=== PATIENT | male | born 1970 | race Caucasian/White ===

== ENCOUNTER 2017-01-20 13:34 | Inpatient (IN) | payer MEDICAID, OTHER ==
[~2017-01-20] VITALS: Ht 165.1 cm; Wt 72.6 kg
[2017-01-20] MEDS ORDERED: INSU100C SQ (13:50)
[2017-01-20] MEDS ORDERED: GABA-534 PO (13:50)
--- NOTE | 2017-01-20 13:55 | NUR ---
CODE SEPSIS WAS CALLED BY DR BLACK. CODE SEPSIS PROTOCOL STARTED.
[2017-01-20] MEDS ORDERED: ONDANSETRON 4 MG/2 ML VIAL IV ONE (14:15)
[2017-01-20] MEDS ORDERED: LIDOCAINE HCL 2% 20 ML VIAL TP ONE (14:15)
[2017-01-20] MEDS ORDERED: MORPHINE SULFATE 2 MG/1 ML DISP.SYRIN IV ONE (14:15)
[2017-01-20] MEDS ORDERED: VANCOMYCIN IV 1,000 MG in IV DEXTROSE 5% 250 ML IV ONE (14:15)
[2017-01-20] MEDS ORDERED: IV NORMAL SALINE 1000 ML BAG IV ONE ×2 (14:15→15:15)
[2017-01-20] MEDS ORDERED: LET TOPICAL SOLUTION 8 ML UDC TOP ONE (14:15)
--- NOTE | 2017-01-20 14:20 | NUR ---
PT IS IN ROOM #1A. DR BLACK EVALUATED THE PT.
[2017-01-20 14:46] LABS: BASOPHILS # (AUTO) 0.1 K/uL (0.0-8.0); BASOPHILS % (AUTO) 0.7 % (0.0-2.0); EOSINOPHILS # (AUTO) 0.2 K/uL (0.0-0.7); EOSINOPHILS % (AUTO) 1.6 % (0.0-7.0); HEMATOCRIT 36.6 % (40-50); HEMOGLOBIN 12.2 G/DL (14.0-18.0); LYMPHOCYTES # (AUTO) 3.3 K/UL (0.8-4.8); MEAN CORPUSCULAR HEMOGLOBIN 29.4 UUG (27.0-31.0); MEAN CORPUSCULAR HGB CONC 33 g/dL (32.0-37.0); MEAN CORPUSCULAR VOLUME 88.2 FL (82.0-92.0); MONOCYTES # (AUTO) 0.8 K/UL (0.1-1.30); MONOCYTES % (AUTO) 6.2 % (0.0-11.0); NEUTROPHILS # (AUTO) 8.2 K/UL (1.8-8.9); NEUTROPHILS % (AUTO) 65.5 % (38.5-71.5); PLATELET COUNT (AUTO) 448 K/UL (150-450); RED BLOOD CELL COUNT(AUTO) 4.15 MIL/UL (4.7-6.1); WHITE BLOOD COUNT (AUTO) 12.6 K/UL (4.0-11.2)
[2017-01-20] MEDS ORDERED: ONDANSETRON 4 MG/2 ML VIAL ONE (14:47)
[2017-01-20] MEDS ORDERED: MORPHINE SULFATE 2 MG/1 ML DISP.SYRIN ONE (14:47)
[2017-01-20] MEDS ORDERED: LET TOPICAL SOLUTION 8 ML UDC ONE (14:48)
[2017-01-20] MEDS ORDERED: VANCOMYCIN IV 200 ML ONE (14:50)
[2017-01-20] MEDS: SODIUM BICARBONATE 4.2 % (NEUT) 5 ML VIAL TP ONE ×2 (14:50→15:39)
[2017-01-20 14:51] LABS: ALANINE AMINOTRANSFERASE 18 U/L (16-63); ALKALINE PHOSPHATASE 150 U/L (50-136); ASPARTATE AMINOTRANSFERASE 15 U/L (15-37); BILIRUBIN,DIRECT < 0.1 mg/dL (0.0-0.2); BILIRUBIN,TOTAL 0.1 mg/dL (0.2-1.0); CARBON DIOXIDE 32 mmol/L (21-32); CHLORIDE 96 mmol/L (98-107); CREATININE 1.3 mg/dL (0.6-1.3); POTASSIUM 3.6 mmol/L (3.5-5.1); TOTAL PROTEIN, SERUM 7.6 g/dL (6.4-8.2); UREA NITROGEN, BLOOD 16 mg/dL (7-18)
[2017-01-20 14:58] LABS: GLUCOSE 426 mg/dL (74-106)
[2017-01-20] MEDS ORDERED: INSULIN REGULAR, HUMAN 1,000 UNITS/10 ML VIAL IV ONE (15:45)
[2017-01-20] MEDS ORDERED: INSULIN REGULAR, HUMAN 300 UNIT/3 ML VIAL ONE (15:56)
[2017-01-20] MEDS ORDERED: MORPHINE SULFATE 4 MG/1 ML DISP.SYRIN IV ONE (17:30)
[2017-01-20] MEDS ORDERED: MORPHINE SULFATE 4 MG/1 ML DISP.SYRIN ONE (17:41)
[2017-01-20 17:51] LABS: *BILIRUBIN,URIN NEGATIVE (NEGATIVE); *BLOOD, URINE 3+ (NEGATIVE); *CLARITY,URINE CLEAR (CLEAR); *COLOR,URINE YELLOW (YELLOW); *KETONES,URINE NEGATIVE (NEGATIVE); *UROBILINOGEN,URINE 0.2 E.U./dl (NORMAL); LEUKOCYTE ESTERASE ,URINE NEGATIVE (NEGATIVE); NITRITE, URINE NEGATIVE (NEGATIVE)
[2017-01-20] MEDS ORDERED: LEVOFLOXACIN 750 MG/D5W 150 ML PIGGYBACK IV ONE (18:00)
[2017-01-20 18:20] LABS: *PROTEIN,URINE 3+ (NEGATIVE)
[2017-01-20 18:21] LABS: UGLUCOSE 2+ (NEGATIVE)
[2017-01-20 18:22] LABS: RBC,URINE 20-50 /HPF (0-3); WBC,URINE 0-3 /HPF (0-3)
[2017-01-20 18:23] LABS: MUCUS,URINE FEW /LPF (0-FEW)
[2017-01-20] MEDS ORDERED: LEVOFLOXACIN 750MG/D5W 150 ML IV ONE (18:28)
--- NOTE | 2017-01-20 19:19 | NUR ---
Received report from HAI Balderas. Assumed care of pt at this time. Admission pending.
[2017-01-20] MEDS ORDERED: HYDROMORPHONE 1 MG/1 ML DISP.SYRIN IV ONE (20:30)
[2017-01-20] MEDS ORDERED: HYDROMORPHONE 1 MG/1 ML DISP.SYRIN ONE (20:44)
--- NOTE | 2017-01-20 20:44 | NUR ---
Pt c/o increased pain, requested pain medication. MD notified and pt medicated, will monitor for effects of medications. Report called to HAI Parkinson. Preparing to transfer pt to the floor.
--- NOTE | 2017-01-20 21:20 | NUR ---
PT RECEIVED FROM ED VIA [place]. A/OX4. ABLE TO MAKE NEEDS KNOWN. ORIENTED TO ROOM. V/S STABLE. NO ACUTE DISTRESS NOTED. NO COMPLAINTS OF PAIN. 103 SINUS TACHY ON THE TELE MONITOR. SAFETY MEASURES IMPLEMENTED. CALL LIGHT WITHIN REACH.
[2017-01-20 21:36] VITALS: BP 128/88
[2017-01-20] MEDS ORDERED: ONDANSETRON 4 MG/2 ML VIAL IV PRN (23:15)
[2017-01-20] MEDS ORDERED: ZOLPIDEM 5 MG TABLET PO PRN (23:15)
[2017-01-20] MEDS ORDERED: ACETAMINOPHEN 325 MG TABLET PO PRN (23:15)
[2017-01-20] MEDS ORDERED: ENOXAPARIN SODIUM 40 MG/0.4 ML DISP.SYRIN SQ SCH (23:15)
[2017-01-20] MEDS ORDERED: MAGNESIUM HYDROXIDE 30 ML LIQUID UDC PO PRN (23:15)
[2017-01-20] MEDS ORDERED: INSULIN REGULAR, HUMAN 300 UNITS/3 ML VIAL SQ PRN (23:45)
[2017-01-20] MEDS ORDERED: INSULIN REGULAR, HUMAN 300 UNIT/3 ML VIAL SQ PRN (23:45)
[2017-01-20] MEDS ORDERED: DEXTROSE 50% 50 ML DISP.SYRIN IV PRN (23:45)
[2017-01-20] MEDS: BLOOD SUGAR DIAGNOSTIC 1 EACH STRIP VI SCH (23:53)
[2017-01-21] VITALS: BP 110/66
[2017-01-21 04:00] VITALS: BP 131/91
--- NOTE | 2017-01-21 05:35 | NUR ---
PT REFUSED AM LABS
[2017-01-21] MEDS ORDERED: CLINDAMYCIN PHOSPHATE 600 MG/4 ML VIAL ONE (06:26)
--- NOTE | 2017-01-21 07:00 | NUR ---
PT IS LAYING IN BED. PT IS IN PAIN, PAGED DR BEDOYA FOR ORDERS. NO S/S OF RESPIRATORY DISTRESS NOTED. IV INTACT/PATENT. ALL SAFETY NEEDS ARE MET. PER NOC NURSE "DRESSING - WOUND CARE WAS DONE AT MIDNIGHT, WILL CONTINUE MONITORING THE WOUND WILL CHANGE IF SOILED PER ORDER.
--- NOTE | 2017-01-21 07:04 | NUR ---
END OF SHIFT NOTES. PT SLEPT INTERMITTENTLY THROUGHOUT SHIFT. V/S STABLE. NO ACUTE DISTRESS NOTED. NO COMPLAINTS OF PAIN. REFUSED TO REAPPLY TELE, PT STATES' "LEAVE ME ALONE I WANT TO SLEEP" WILL ENDORSE TO DAYSHIFT. NEEDS ATTENDED. SAFETY MAINTAINED. CALL LIGHT WITHIN REACH
[2017-01-21] MEDS: BLOOD SUGAR DIAGNOSTIC 1 EACH STRIP VI SCH ×4 (07:54→20:24)
[2017-01-21] MEDS: CLINDAMYCIN PHOSPHATE IV 600 MG in IV DEXTROSE 5% 100 ML IV SCH ×3 (07:54→21:11)
[2017-01-21] MEDS: PANTOPRAZOLE SODIUM 40 MG TABLET.DR PO SCH (08:22)
[2017-01-21] MEDS: ENOXAPARIN SODIUM 40 MG/0.4 ML DISP.SYRIN SQ SCH (08:28)
[2017-01-21] MEDS: HYDROMORPHONE 1 MG/1 ML DISP.SYRIN IV PRN ×3 (08:57→20:08)
[2017-01-21] MEDS: VANCOMYCIN IV 1 G in PREMIXED 0 EACH IV SCH (09:51)
[2017-01-21 10:36] LABS: BASOPHILS # (AUTO) 0.1 K/uL (0.0-8.0); BASOPHILS % (AUTO) 0.4 % (0.0-2.0); EOSINOPHILS # (AUTO) 0.2 K/uL (0.0-0.7); EOSINOPHILS % (AUTO) 1.5 % (0.0-7.0); HEMATOCRIT 34.2 % (40-50); HEMOGLOBIN 11.5 G/DL (14.0-18.0); LYMPHOCYTES % (AUTO) 20.6 % (20.5-51.5); MEAN CORPUSCULAR HEMOGLOBIN 29.5 UUG (27.0-31.0); MEAN CORPUSCULAR HGB CONC 34 g/dL (32.0-37.0); MEAN CORPUSCULAR VOLUME 88.3 FL (82.0-92.0); MONOCYTES # (AUTO) 0.7 K/UL (0.1-1.30); MONOCYTES % (AUTO) 4.5 % (0.0-11.0); NEUTROPHILS # (AUTO) 10.5 K/UL (1.8-8.9); PLATELET COUNT (AUTO) 422 K/UL (150-450); RED BLOOD CELL COUNT(AUTO) 3.88 MIL/UL (4.7-6.1); WHITE BLOOD COUNT (AUTO) 14.5 K/UL (4.0-11.2)
[2017-01-21 10:47] LABS: BILIRUBIN,TOTAL 0.1 mg/dL (0.2-1.0); CREATININE 1.1 mg/dL (0.6-1.3); MAGNESIUM 1.7 mg/dL (1.8-2.4); PHOSPHOROUS 2.8 mg/dL (2.5-4.9); POTASSIUM 3.9 mmol/L (3.5-5.1); TOTAL PROTEIN, SERUM 6.3 g/dL (6.4-8.2)
[2017-01-21 10:56] LABS: THYROID STIMULATING HORMONE 2.796 mIU/mL (0.358-3.740)
--- NOTE | 2017-01-21 11:13 | NUR ---
ADVISED ABOUT CRITICAL LAB GLUCOSE 304. PER KEENAN BYNUM "CHANGE INSULIN FROM MODERATE TO AGGRESSIVE, CHECK HIS BG VIA ACCUCHECK AND IF THE BG IS HIGH GIVE HIM INSULIN PER AGGRESSIVE SCALE."
[2017-01-21 11:40] VITALS: BP 122/77
[2017-01-21] MEDS: INSULIN REGULAR, HUMAN 300 UNIT/3 ML VIAL SQ PRN ×2 (11:57→17:48)
[2017-01-21] MEDS ORDERED: MAGNESIUM SULFATE/D5W 100 ML IV SCH (12:15)
[2017-01-21] MEDS: IV NS 1000 ML 1,000 ML IV PRN (12:51)
[2017-01-21] MEDS: FERROUS SULFATE 325 MG TABEC PO SCH (12:51)
--- NOTE | 2017-01-21 14:59 | NUR ---
PT IS POSTIVE FOR DVT IN HIS EXTREMITY, KEENAN BYNUM IS AWARE. PT'S 02 SAT IS 85 ON SHARRI AIR, PT REFUSED TO HAVE SUPPLEMENTAL OXYGEN. PT SCREAMS "I SAID I DON'T WANT ANYTHING ON MY FACE!", PT IS ALERT AND ORIENTEDX3. ADVISED KEENAN BYNUM THAT PT'S O2 SAT IS 85% ON ROOM AIR AND PT REFUSING SUPPLEMETAL OXYGEN, PER KEENAN CASTRO "HE NEEDS IT". PT REFUSED AGAIN. PT GETS AGITATED. PT IS LAYING IN BED. NO PAIN REPORTED.
--- NOTE | 2017-01-21 15:14 | NUR ---
WOUND CARE DONE, DRESSING INTACT/DRY
[2017-01-21 15:31] VITALS: BP 149/96
--- NOTE | 2017-01-21 15:37 | NUR ---
PT REFUSING SUPPLEMENTAL OXYGEN MULTIPLE TIMES, REFUSED TO HAVE FAN IN HIS ROOM WELL. PT IS ALERT AND ORIENTED. PROVIDER IS AWARE THAT PT REFUSING HIS OXYGEN.
--- NOTE | 2017-01-21 15:46 | NUR ---
[facility] 13:46 [facility] about the patient being capitated to [facility]. She confirmed htransferring the patient
--- NOTE | 2017-01-21 15:46 | NUR ---
PT REFUSED WOUND CULTURE SWAB, WOUND CARE WAS DONE PRIOR THE WOUND CULTURE SWB. PT "WANTS TO SLEEP"
--- NOTE | 2017-01-21 15:48 | NUR ---
12:56 Spoke to Sunil from Admitting to find out where the patient is capitated to and he stated that it is [facility]. He provided the phone number - - for the CM. 13:10 Called - but there was no answer 13:19 Called [facility] and spoke to Jenny [phone]] about the patient being capitated to [facility]. She confirmed that he is. Asked for help in transferring the patient but she stated that it has to be initiated by the patient's IPA which is [facility] [ ] 13:26 DHS tray casting machine operator stated that we have to call the main number and ask for [facility] ER - ext. [phone] 13:30 [facility] ER stated they do not initiate transfer and was referred to the Guide Control [ ] 13:38 Called the Guide Control and transferred to [place] from [facility] [ ]. She stated that they can not assist at this point because [facility] has not received an initial request for admission. 13:46 Called [facility] [ ] and spoke to Jerry about the situation. She transferred me to which is the in-patient CM Support Line. Stan took the case and initiated the admission. She provided Tracking# [id number] and stated that the CM is Arelis Hernandes [phone]. 14:10 Left a message to CM, Arelis Hernandes Addendum: 01/21/17 at 1730 by MAMIE SCRUGGS [facility] Left a message for Erum Morales [CM from [employer]; ; ] and faxed her the patient's facesheet, H&P, labs and med list with Tracking# [id number]
--- NOTE | 2017-01-21 15:54 | NUR ---
CLINICAL PHARMACY NOTE: VANCOMYCIN PHARMACY TO DOSE Subjective: To start vancomycin in this 46 y/o male for cellulitis, possibly necrotizing, from knee amputation wound with purulent discharge (per ER note). Also currently on clindamycin, ID to follow Objective: height 177cm weight 72 kg BUN 16 Scr 1.3 wbc 12.6 temp 98.3 1gm vancomycin given at 8/3 @1447 in ER Assessment/Plan Will start vancomycin 1gm q14hrs for expected trough of 15.56. First dose today at 0900. Will order trough before 4th scheduled dose (not ordered yet). Will also monitor renal function and adjust if were to seem unstable. Will continue to follow.
--- NOTE | 2017-01-21 16:07 | NUR ---
PT WANTS TO GO OUTSIDE TO SMOKE, BUT REFUSED TO HAVE NICOTINE PATCH
--- NOTE | 2017-01-21 17:03 | NUR ---
pt still refusing supplemental oxygen, per priti Roman "order for oxygen". ADVISED NURSE MUSIC ADAPTER AND CHARGE NURSE THAT THE PT REFUSES O2. PT GETS AGITATED WHEN ASKED, SCREAMS "MY OXYGEN IS LOW BECAUSE OF THE DRY CHICKEN I ATE! IDON'T WANT ANYTHING ON MY FACE!". STILL REFUSING FAN. CALLED HAND POTTER TO ADVISE THE PT. Addendum: 01/21/17 at 1705 by LIZZ RUIZ RN EDUCATION WAS PROVIDED ON IMPORTANCE OF HAVING SUPPLEMENTAL OXYGEN.
--- NOTE | 2017-01-21 17:05 | NUR ---
PT IS ABLE TO TALK, BREATHING IS WNL. NO SOB REPORTED BY THE PT.
--- NOTE | 2017-01-21 17:27 | NUR ---
PT KEPT ON MOVING DURING BLOOD DRAW. PT REFUSED LABS, WHEN ASKED ABOUT ACCUCHECK. PT STATES "WAIT 5 MIN", WILL COME BACK TO ASK IF ACCUCHECK CAN BE PERFORMED. PT HAS NC ON ON 2L Addendum: 01/21/17 at 1729 by LIZZ RUIZ RN WILL CHECK 02 SAT IN 5 MIN
--- NOTE | 2017-01-21 18:05 | NUR ---
pt ripped his nc off his face, screams "i told you don't put it on!I don't want it!". Asked the pt if a fan will help the pt to breath "ok", brought in a fan to put on high flow facing the pt. Advice the pt that he NEEDS the oxygen and he will be able to breathe better. "I don't need it, I trust no one! You all are trying to kill me!". 02 sat is 80% on room air.
--- NOTE | 2017-01-21 18:11 | NUR ---
pt is moaning, asked the pt if he is in pain "I'm not in pain".
--- NOTE | 2017-01-21 18:24 | NUR ---
RT WAS CALLED TO ASSESS THE PT. 02 SAT IS AT 78%-80%. PT REFUSED TO KEEP THE OXYGEN ON WITH RT. PT SCREAMS "IM TOO COLD, TURN THAT D FAN OFF!". PT IS ALERT AND ORIENTED, OCCASIONAL COUGH IS NOTED, PT TAKES DEEP FREQUENT BREATHS. BP REFUSED, HR IS 130 Addendum: 01/21/17 at 1829 by LIZZ RUIZ RN RR IS 28 Addendum: 01/21/17 at 1830 by LIZZ RUIZ RN ASSESSMENT OF LUNG SOUNDS
[2017-01-21 19:00] VITALS: BP 160/106
--- NOTE | 2017-01-21 19:00 | NUR ---
PT REPORTS TO HAVE PAIN, BUT 02 SAT IS LOW. ADVISED THE PT THAT WE NEED TO GET 02 SAT HIGHER BEFORE PAIN MEDS. IV INTACT/PATENT. ALL SAFETY NEEDS ARE MET. PT STILL REFUSES NC.
--- NOTE | 2017-01-21 19:30 | NUR ---
RECEIVED PATIENT LAYING IN BED. NC OFF. PER AM NURSE LIZZ, PT REFUSED FAN, O2 NC, AND TR. UPSET. IN PAIN, ADVISED TO PUT ON O2 NC BEFORE PAIN MED ADMINISTRATION. IV ON THE RIGHT UPPER ARM PATENT AND INTACT. SAFETY INITIATED. CALL LIGHT WITHIN REACH. WILL CONTINUE TO MONITOR. TELE SINUS TACH.
--- NOTE | 2017-01-21 19:35 | NUR ---
DR. STEELE SEEING PATIENT AT BEDSIDE.
--- NOTE | 2017-01-21 19:45 | NUR ---
ALERT MD DR. STEELE ABOUT VS B/P 160/106 HR 132. NO SCHEDULED OR PRN B/P MEDS ON BOARD. DR. STEELE ORDERED METOPROLOL 50 MG. Q12HRS FIRST DOSE NOW.
[2017-01-21] MEDS: LACTOBACILLUS RHAMNOSUS GG 1 EACH CAPSULE PO SCH (20:08)
[2017-01-21] MEDS: ATORVASTATIN 10 MG TABLET PO SCH (20:08)
[2017-01-21] MEDS: MEROPENEM 1 G in IV NORMAL SALINE 100 ML IV SCH (20:23)
[2017-01-21] MEDS ORDERED: INSULIN DETEMIR 300 UNIT/3 ML CARTRIDGE SQ SCH (21:00)
[2017-01-21] MEDS ORDERED: INSULIN GLARGINE,HUM 300 UNITS/3 ML CARTRIDGE SQ SCH (21:00)
[2017-01-21] MEDS: INSULIN REGULAR, HUMAN 300 UNITS/3 ML VIAL SQ PRN (21:05)
[2017-01-21] MEDS: METOPROLOL TARTRATE 50 MG TABLET PO SCH (21:06)
[2017-01-22 00:07] VITALS: BP 150/95
--- NOTE | 2017-01-22 01:00 | NUR ---
PATIENT DEMAND THAT THE CADIAC LEADS TO BE REMOVED. HE DOES NOT WANT TO BE PUT ON A TELE MONITOR. "I DONT WANT TO BE ON THIS SINCE THIS MORNING". WILL ALERT THE MD.
[2017-01-22] MEDS: HYDROMORPHONE 1 MG/1 ML DISP.SYRIN IV PRN (01:20)
--- NOTE | 2017-01-22 01:50 | NUR ---
MD ALERTED ON PATIENT'S WISH TO CHANGE DILAUDID TO MORPHINE. ALSO ALERTED PATIENT DID NOT WANT TO BE ON TELE MONITOR.
[2017-01-22] MEDS: VANCOMYCIN IV 1 G in PREMIXED 0 EACH IV SCH ×2 (02:00→12:56)
[2017-01-22] MEDS: IV NS 1000 ML 1,000 ML IV PRN (02:04)
--- NOTE | 2017-01-22 02:40 | NUR ---
ORDERS RECEIVED TO D/C DILAUDID ORDERS RECEIVED TO START MORPHINE 1 MG IVP Q4H PRN VIN DENNIS N.P.
[2017-01-22] MEDS ORDERED: MORPHINE SULFATE 2 MG/1 ML DISP.SYRIN IV PRN (03:15)
[2017-01-22] MEDS: MEROPENEM 1 G in IV NORMAL SALINE 100 ML IV SCH ×3 (03:52→20:30)
[2017-01-22 04:00] VITALS: BP 127/77
--- NOTE | 2017-01-22 04:30 | NUR ---
PATIENT IV IN THE RIGHT UPPER ARM, DISLODGED. BECAUSE HE IS A HARD STICK AND A CURRENT DAY HEROIN USER, I CALLED ER, SPOKE TO WILL. WILL CAME UP. ACCORDING TO WILL, HE GOT A VEIN BUT PATIENT PULLED PULLED BACK, IV CAME OUT AND REFUSED IV RE-INSERTION. HE SAID "HE DOES NOT WANT IT ANYMORE".
[2017-01-22] MEDS: CLINDAMYCIN PHOSPHATE IV 600 MG in IV DEXTROSE 5% 100 ML IV SCH ×3 (06:00→21:36)
[2017-01-22] MEDS: PANTOPRAZOLE SODIUM 40 MG TABLET.DR PO SCH (06:10)
--- NOTE | 2017-01-22 06:30 | NUR ---
PATIENT SLEPT INTERMITTENTLY T/O SHIFT. COMPLAINED OF PAIN 10/10 IN THE BACK. MEDS GIVEN ORDERED. STATED RELIEF. PATIENT IV GOT DISLODGED AND REFUSED TO HAVE IT RE-INSERTED DESPITE DETAILED EXPLANATION OF THE IMPORTANCE OF HAVING AN IV SITE. PATIENT ALSO REFUSED TO HAVE 02 2L NC. HE STATES THAT "ITS CHOCKING ME, I DONT WANT IT". DRESSING CHANGED ON THE BACK AND RIGHT FOOT SOLE. CLEANED WITH NS, WRAPPED WITH 4X4 AND TAPED WITH PAPER TAPE. PATIENT REFUSED LINEN CHANGE, PER OYSTER PLANTER. AND TOOK OFF TELE MONITOR. VIN DENNIS MADE AWARE OF THIS. SAFETY AND COMFORT MAINTAINED T/O SHIFT, ALL NEEDS MET. CALL LIGHT WITHIN REACH. WILL CONTINUE TO MONITOR.
[2017-01-22] MEDS: BLOOD SUGAR DIAGNOSTIC 1 EACH STRIP VI SCH ×4 (06:57→20:40)
--- NOTE | 2017-01-22 08:00 | NUR ---
Received patient awake in bed, alert, verbally responsive, not in any form of acute distress. He denies any pain or discomfort at this time. Call light laced within reach. Attended to his needs.
[2017-01-22] MEDS: FERROUS SULFATE 325 MG TABEC PO SCH (09:44)
[2017-01-22] MEDS: LACTOBACILLUS RHAMNOSUS GG 1 EACH CAPSULE PO SCH ×2 (09:44→20:31)
[2017-01-22] MEDS: METOPROLOL TARTRATE 50 MG TABLET PO SCH ×2 (09:45→20:31)
[2017-01-22] MEDS: ENOXAPARIN SODIUM 40 MG/0.4 ML DISP.SYRIN SQ SCH (09:46)
[2017-01-22 10:29] LABS: BASOPHILS % (AUTO) 0.3 % (0.0-2.0); EOSINOPHILS # (AUTO) 0.1 K/uL (0.0-0.7); EOSINOPHILS % (AUTO) 0.7 % (0.0-7.0); HEMATOCRIT 33.9 % (40-50); HEMOGLOBIN 11.6 G/DL (14.0-18.0); LYMPHOCYTES # (AUTO) 2.5 K/UL (0.8-4.8); LYMPHOCYTES % (AUTO) 15.7 % (20.5-51.5); MEAN CORPUSCULAR HGB CONC 34 g/dL (32.0-37.0); MEAN CORPUSCULAR VOLUME 87.7 FL (82.0-92.0); MONOCYTES # (AUTO) 0.8 K/UL (0.1-1.30); MONOCYTES % (AUTO) 5.2 % (0.0-11.0); NEUTROPHILS # (AUTO) 12.6 K/UL (1.8-8.9); NEUTROPHILS % (AUTO) 78.1 % (38.5-71.5); PLATELET COUNT (AUTO) 447 K/UL (150-450); RED BLOOD CELL COUNT(AUTO) 3.86 MIL/UL (4.7-6.1); WHITE BLOOD COUNT (AUTO) 15.9 K/UL (4.0-11.2)
[2017-01-22 11:19] VITALS: BP 133/85
--- NOTE | 2017-01-22 11:20 | NUR ---
Case Management: Left second message for Erum Morales [CM from [employer]; ; ] and faxed her the patient's facesheet, H&P, labs and med list with Tracking# [id number]. Currently awaiting a call back to transfer patient to a contracted facility for higher level of care.
[2017-01-22] MEDS: MORPHINE SULFATE 4 MG/1 ML DISP.SYRIN IV PRN ×2 (11:25→18:15)
[2017-01-22 11:43] LABS: BILIRUBIN,TOTAL 0.3 mg/dL (0.2-1.0); CREATININE 1.2 mg/dL (0.6-1.3); MAGNESIUM 1.7 mg/dL (1.8-2.4); PHOSPHOROUS 2.6 mg/dL (2.5-4.9); POTASSIUM 3.6 mmol/L (3.5-5.1); TOTAL PROTEIN, SERUM 6.7 g/dL (6.4-8.2)
[2017-01-22] MEDS: INSULIN REGULAR, HUMAN 300 UNIT/3 ML VIAL SQ PRN ×2 (11:59→18:22)
[2017-01-22] MEDS ORDERED: MAGNESIUM SULFATE/D5W 100 ML IV SCH (12:45)
--- NOTE | 2017-01-22 13:06 | NUR ---
I was planing to perform CTA Chest on Tiago Augustin but he was eating lunch. I asked Juliana 'Charge Nurse' if it would be ok with ordering physician to wait few hours to perform the procedure (because status was Routine,and patient had lunch) she told me that would be no problem and it is a Routine not a Stat exam.
--- NOTE | 2017-01-22 13:30 | NUR ---
RFA peripheral line dislodged and patient refused IV insertion at this time. Explained risks and benefits but patient still refused.
--- NOTE | 2017-01-22 15:02 | NUR ---
CLINICAL PHARMACY NOTE: VANCOMYCIN PHARMACY TO DOSE Subjective: To continue vancomycin in this 46 y/o male for cellulitis, possibly necrotizing, from knee amputation wound with purulent discharge (per ER note). Also currently on clindamycin, ID to follow Objective: height 177cm weight 72 kg BUN 14 Scr 1.2 wbc 15.9 temp 98.2 Assessment/Plan Will continue vancomycin 1gm q14hrs for expected trough of 15.56. Second dose today at 0200. Will order trough before 4th scheduled dose (ordered tomorrow at 0230). Will also monitor renal function and adjust if were to seem unstable. Will continue to follow.
--- NOTE | 2017-01-22 15:33 | NUR ---
Midline inserted on PARRISH, patent.
[2017-01-22] MEDS ORDERED: NORMAL SALINE FLUSH 10 ML DISP.SYRIN ONE (16:29)
[2017-01-22] MEDS ORDERED: IV NORMAL SALINE 250 ML IV ONE (16:29)
[2017-01-22] MEDS ORDERED: IOHEXOL 350 100 ML INFUS..BTL ONE (16:29)
--- NOTE | 2017-01-22 16:40 | NUR ---
Patient picked up by pharmacy resource tech Edd for CTA chest.
[2017-01-22] MEDS ORDERED: FUROSEMIDE 20 MG/2 ML VIAL IV ONE (18:15)
[2017-01-22] MEDS: SILVER SULFADIAZINE 1% CREAM 50 GM TP SCH (18:16)
[2017-01-22 18:43] VITALS: BP 130/88
[2017-01-22 20:00] VITALS: BP_SYST 132; BP_SYST 137; BP_DIAS 91
[2017-01-22] MEDS: ATORVASTATIN 10 MG TABLET PO SCH (20:30)
[2017-01-22] MEDS: DOCUSATE SODIUM 100 MG CAPSULE PO SCH (20:31)
[2017-01-22] MEDS: ENOXAPARIN SODIUM 80 MG/0.8 ML DISP.SYRIN SQ SCH (20:33)
[2017-01-22] MEDS: INSULIN REGULAR, HUMAN 300 UNITS/3 ML VIAL SQ PRN (20:45)
[2017-01-22] MEDS: INSULIN DETEMIR 300 UNIT/3 ML CARTRIDGE SQ SCH (20:46)
[2017-01-23] MEDS: MEROPENEM 1 G in IV NORMAL SALINE 100 ML IV SCH ×3 (02:37→20:02)
[2017-01-23] MEDS: VANCOMYCIN IV 1 G in PREMIXED 0 EACH IV SCH ×2 (02:38→17:42)
[2017-01-23 06:00] VITALS: BP 122/87
[2017-01-23] MEDS: PANTOPRAZOLE SODIUM 40 MG TABLET.DR PO SCH (06:18)
[2017-01-23] MEDS: MORPHINE SULFATE 4 MG/1 ML DISP.SYRIN IV PRN ×3 (06:18→20:02)
[2017-01-23] MEDS: CLINDAMYCIN PHOSPHATE IV 600 MG in IV DEXTROSE 5% 100 ML IV SCH ×3 (06:18→23:10)
[2017-01-23 06:29] LABS: BASOPHILS # (AUTO) 0.2 K/uL (0.0-8.0); EOSINOPHILS # (AUTO) 0.1 K/uL (0.0-0.7); EOSINOPHILS % (AUTO) 0.5 % (0.0-7.0); HEMATOCRIT 32.8 % (40-50); HEMOGLOBIN 11.1 G/DL (14.0-18.0); LYMPHOCYTES # (AUTO) 4.3 K/UL (0.8-4.8); LYMPHOCYTES % (AUTO) 24.3 % (20.5-51.5); MEAN CORPUSCULAR HEMOGLOBIN 29.9 UUG (27.0-31.0); MEAN CORPUSCULAR HGB CONC 34 g/dL (32.0-37.0); MEAN CORPUSCULAR VOLUME 88.6 FL (82.0-92.0); MONOCYTES # (AUTO) 0.8 K/UL (0.1-1.30); MONOCYTES % (AUTO) 4.8 % (0.0-11.0); NEUTROPHILS # (AUTO) 12.3 K/UL (1.8-8.9); NEUTROPHILS % (AUTO) 69.4 % (38.5-71.5); PLATELET COUNT (AUTO) 451 K/UL (150-450); WHITE BLOOD COUNT (AUTO) 17.7 K/UL (4.0-11.2)
[2017-01-23 07:10] LABS: BILIRUBIN,TOTAL 0.2 mg/dL (0.2-1.0); CREATININE 1.3 mg/dL (0.6-1.3); TOTAL PROTEIN, SERUM 6.8 g/dL (6.4-8.2)
[2017-01-23] MEDS: BLOOD SUGAR DIAGNOSTIC 1 EACH STRIP VI SCH ×4 (07:30→20:26)
--- NOTE | 2017-01-23 07:30 | NUR ---
NURSE NOTE: ASSUMED CARE OF PT, VSS, NO C/O PAIN, AOx4, HEAD TO TOE DONE, FALL PRECAUTIONS IN PLACE. WILL CONTINUE TO MONITOR
[2017-01-23 08:00] VITALS: BP 124/76
[2017-01-23] MEDS: INSULIN REGULAR, HUMAN 300 UNIT/3 ML VIAL SQ PRN ×3 (08:40→17:43)
[2017-01-23] MEDS: FERROUS SULFATE 325 MG TABEC PO SCH (08:43)
[2017-01-23] MEDS: LACTOBACILLUS RHAMNOSUS GG 1 EACH CAPSULE PO SCH ×2 (08:43→20:26)
[2017-01-23] MEDS: METOPROLOL TARTRATE 50 MG TABLET PO SCH (08:47)
[2017-01-23] MEDS ORDERED: POTASSIUM CHLORIDE 20 MEQ TAB.PRT.SR PO ONE (10:00)
[2017-01-23] MEDS: ENOXAPARIN SODIUM 80 MG/0.8 ML DISP.SYRIN SQ SCH ×2 (10:07→21:00)
[2017-01-23] MEDS: SILVER SULFADIAZINE 1% CREAM 50 GM TP SCH ×2 (10:09→17:44)
[2017-01-23] MEDS: SODIUM HYPOCHLORITE 0.125% 473 ML BOTTLE TP SCH (10:09)
[2017-01-23 11:46] VITALS: BP 120/88
--- NOTE | 2017-01-23 14:36 | NUR ---
NURSE NOTE: WOUND CARE PERFORMED PER PROTOCOL, PT TOLERATED WELL. LEFT UPPER BACK: 95% WHITE/YELLOW/GREEN ESCAR TISSUE NOTED WITH MODERATE AMOUNT OF YELLOW DRAINAGE. AWAITING FOR SURGEON AND WOUND CARE NURSE EZEKIEL.
[2017-01-23 16:11] VITALS: BP 120/80
--- NOTE | 2017-01-23 16:50 | NUR ---
CLINICAL PHARMACY NOTE: VANCOMYCIN PHARMACY TO DOSE Subjective: To continue vancomycin in this 46 y/o male for cellulitis, possibly necrotizing, from knee amputation wound with purulent discharge (per ER note), R/O osteomyelitis per ID note. Also currently on clindamycin Objective: height 177cm weight 72 kg Objective BUN 18 Scr 1.3 wbc 17.7 temp 98 Vanco level: 45.5 mcg/ml but drawn at 0455 instead of 0230 as ordered. RN gave a dose at 0230. Vanco trough level: pending (ordered for 1630 today) Assessment/Plan On vancomycin 1gm IVPB q14hrs for now. Waiting for trough level result ordered for today at 1630. Pharmacy will review the level when available & adjust the dose if needed. Will also monitor renal function and adjust if were to seem unstable. Will continue to follow. Addendum: 01/23/17 at 1729 by BINDU VILLALTA ADM VANCO TROUGH LEVEL: 14.8 WILL CONTINUE SAME DOSE OF VANCO 1GM IVPB Q14HR FOR TODAY.
--- NOTE | 2017-01-23 18:22 | NUR ---
RN NOTE ASSISTED DR BURDICK WITH I&D AT THE BED SIDE. MORPHINE 4MG IV GIVEN PRIOR TO PROCEDURE. PT TOLERATED WELL. WOUND CULTURE DONE AND SENT TO THE LAB. WOUND BED PACKED WITH BETADINE GAUZE AND COVERED WITH STERILE 4X4. WILL CONTINUE TO REASSESS.
--- NOTE | 2017-01-23 19:27 | NUR ---
RN NOTES: REPORT GIVEN TO HAI CHIN. PT IS IN STABLE CONDITION
[2017-01-23 20:00] VITALS: BP 116/68
[2017-01-23] MEDS: ATORVASTATIN 10 MG TABLET PO SCH (20:26)
[2017-01-23] MEDS: DOCUSATE SODIUM 100 MG CAPSULE PO SCH (20:26)
--- NOTE | 2017-01-23 20:30 | NUR ---
PT RECEIVED AOX3. PT C/O OF CHEST PAIN AND OBSERVED WITH LABORED BREATHING RESPIRATIONS 28, VITAL SIGNS 116/68, O2 SAT 85% ON 3 LITERS, HEART RATE 104, TEMPT 98.7. PT HEAD OD BED WAS ELEVATED BUT PT UNCOOPERATIVE AND STATING "IT'S EASIER TO BREATHE LAYING FLAT". MD WAS NOTIFIED AND EKG WAS DONE. PT GIVEN MORPHINE ORDERED. WILL CONTINUE TO MONITOR FOR SAFETY.
[2017-01-23] MEDS: INSULIN DETEMIR 300 UNIT/3 ML CARTRIDGE SQ SCH (20:31)
[2017-01-23] MEDS: INSULIN REGULAR, HUMAN 300 UNITS/3 ML VIAL SQ PRN (20:34)
--- NOTE | 2017-01-23 21:00 | NUR ---
PT REPORTS CHEST ALLEVIATED WITH MORPHINE THAT WAS GIVEN. RESPIRATIONS 20 NO ACUTE DISTRESS NOTED. VITAL STABLE O2 SAT NOW AT 93%. WILL CONTINUE TO MONITOR FOR SAFETY.
--- NOTE | 2017-01-23 21:15 | NUR ---
PT REFUSED LOVENOX ORDERED STATING "I DON'T WANT IT, THAT'S WHAT MAKING ME FEELING LIKE THIS" DESPITE EDUCATION PROVIDED. WILL MAKE MD AWARE.
[2017-01-24 00:15] VITALS: BP 107/63
--- NOTE | 2017-01-24 02:25 | NUR ---
PT OBSERVED IN BED STATING "IT'S GETTING WORST [place] BREATHING" PT IS RUDE TOWARDS STAFF AND UNCOOPERATIVE, WOULD NOT ALLOW STAFF TO RAISE HEAD OF BED AND REMOVING NASAL CANULA DESPITE EDUCATION. PT STATING "JUST LEAVE ME ALONE, GET OUT OF HERE". WILL NOTIFY .
[2017-01-24] MEDS: MEROPENEM 1 G in IV NORMAL SALINE 100 ML IV SCH ×3 (03:20→18:56)
--- NOTE | 2017-01-24 04:30 | NUR ---
PT AWAKE AND TEARFUL REPORTS "BAD DREAM". PT IS ANXIOUS AND REQUESTED TO BE TRANSFERRED TO WHEELCHAIR. DRESSING TO BACK CHANGED WITH STERILE GAUZE ORDERED. PT REMAINS IRRITABLE AND UNCOOPERATIVE WITH CARE AT TIMES DESPITE EDUCATION. COMFORT MEASURES MAINTAINED.
[2017-01-24] MEDS: CLINDAMYCIN PHOSPHATE IV 600 MG in IV DEXTROSE 5% 100 ML IV SCH ×3 (05:12→22:48)
[2017-01-24 05:19] VITALS: BP 137/83
[2017-01-24] MEDS: VANCOMYCIN IV 1 G in PREMIXED 0 EACH IV SCH ×2 (06:23→20:43)
[2017-01-24] MEDS: MORPHINE SULFATE 4 MG/1 ML DISP.SYRIN IV PRN ×4 (06:24→21:53)
[2017-01-24] MEDS: PANTOPRAZOLE SODIUM 40 MG TABLET.DR PO SCH (06:26)
[2017-01-24] MEDS ORDERED: MORPHINE SULFATE 2 MG/1 ML DISP.SYRIN ONE (06:34)
[2017-01-24] MEDS: BLOOD SUGAR DIAGNOSTIC 1 EACH STRIP VI SCH ×4 (06:39→20:54)
[2017-01-24 06:41] LABS: BASOPHILS # (AUTO) 0.2 K/uL (0.0-8.0); EOSINOPHILS # (AUTO) 0.1 K/uL (0.0-0.7); EOSINOPHILS % (AUTO) 0.7 % (0.0-7.0); HEMATOCRIT 32.1 % (40-50); HEMOGLOBIN 10.6 G/DL (14.0-18.0); LYMPHOCYTES # (AUTO) 3.5 K/UL (0.8-4.8); LYMPHOCYTES % (AUTO) 21.4 % (20.5-51.5); MEAN CORPUSCULAR HEMOGLOBIN 29.1 UUG (27.0-31.0); MEAN CORPUSCULAR HGB CONC 33 g/dL (32.0-37.0); MEAN CORPUSCULAR VOLUME 88.3 FL (82.0-92.0); MONOCYTES # (AUTO) 0.8 K/UL (0.1-1.30); MONOCYTES % (AUTO) 5.1 % (0.0-11.0); NEUTROPHILS # (AUTO) 11.8 K/UL (1.8-8.9); NEUTROPHILS % (AUTO) 71.8 % (38.5-71.5); PLATELET COUNT (AUTO) 464 K/UL (150-450); RED BLOOD CELL COUNT(AUTO) 3.64 MIL/UL (4.7-6.1); WHITE BLOOD COUNT (AUTO) 16.4 K/UL (4.0-11.2)
[2017-01-24 06:53] LABS: BILIRUBIN,TOTAL 0.2 mg/dL (0.2-1.0); CREATININE 1.6 mg/dL (0.6-1.3); MAGNESIUM 1.9 mg/dL (1.8-2.4); PHOSPHOROUS 3.5 mg/dL (2.5-4.9); POTASSIUM 3.7 mmol/L (3.5-5.1); TOTAL PROTEIN, SERUM 6.6 g/dL (6.4-8.2)
--- NOTE | 2017-01-24 07:19 | NUR ---
BACKEND PYTHON DEVELOPER WOUND CARE CONSULT RECEIVED. WOUND CARE WILL DEFER TO GENERAL SURGEON, DPM AND ORTHO AT THIS TIME. TREATMENT ORDERS IN PLACE, AMRIK Higgins.
[2017-01-24] MEDS ORDERED: LISINOPRIL 5 MG TABLET PO SCH (09:00)
[2017-01-24 09:19] LABS: EOSINOPHILS % (MANUAL) 1 % (0-8); LYMPHOCYTES % (MANUAL) 28 % (20-40); MONOCYTES % (MANUAL) 3 % (2-10); NEUTROPHILS % (MANUAL) 68 % (42-75)
[2017-01-24] MEDS: LACTOBACILLUS RHAMNOSUS GG 1 EACH CAPSULE PO SCH ×2 (09:38→20:43)
[2017-01-24] MEDS: FERROUS SULFATE 325 MG TABEC PO SCH (09:39)
[2017-01-24] MEDS: ENOXAPARIN SODIUM 80 MG/0.8 ML DISP.SYRIN SQ SCH ×2 (09:40→20:52)
[2017-01-24] MEDS: INSULIN REGULAR, HUMAN 300 UNIT/3 ML VIAL SQ PRN ×3 (09:41→17:03)
[2017-01-24] MEDS: SODIUM HYPOCHLORITE 0.125% 473 ML BOTTLE TP SCH (09:43)
[2017-01-24] MEDS: SILVER SULFADIAZINE 1% CREAM 50 GM TP SCH ×2 (09:43→17:04)
[2017-01-24 11:57] VITALS: BP 158/108
[2017-01-24 15:17] VITALS: BP 134/86
--- NOTE | 2017-01-24 15:40 | NUR ---
CLINICAL PHARMACY NOTE: VANCOMYCIN PHARMACY TO DOSE Subjective: To continue vancomycin in this 46 y/o male for cellulitis, possibly necrotizing, from knee amputation wound with purulent discharge R/O osteomyelitis per ID note. Also currently on clindamycin Objective: height 177cm weight 72 kg Objective BUN 23 Scr 1.6 wbc 16.4 temp 98.7 Assessment/Plan Patient is on Vancomycin 1 gram IV every 14 hrs currently. Since renal function is unstable(1.6 vs 1.3) will draw another trough prior to next dose(ordered for [place] at 2030). Will inform nurse to hold dose if level is over 20. Will follow the level for further dosing. Will monitor daily.
--- NOTE | 2017-01-24 19:20 | NUR ---
RECEIVED PATIENT IN BED, ALERT ORIENTED, NO COMPLAIN OF PAIN AT THIS TIME. DRESSING INTACT ON R TOES, AND BACK, CONT TO MONITOR.
--- NOTE | 2017-01-24 20:30 | NUR ---
RADHA PALENCIA - WOUND , SEEN AND DRAINED PATIENT WOUND ON THE BACK, WITH MODERATE SEROSANGUINEOUS DRAINAGE NOTED, CHANGED DRESSING USING IODOFORM DRESSING SECURE WITH TAPE. TOLERATE WELL.
[2017-01-24 20:38] VITALS: BP 120/81
[2017-01-24] MEDS: ATORVASTATIN 10 MG TABLET PO SCH (20:43)
[2017-01-24] MEDS: DOCUSATE SODIUM 100 MG CAPSULE PO SCH (20:43)
[2017-01-24] MEDS: INSULIN DETEMIR 300 UNIT/3 ML CARTRIDGE SQ SCH (20:52)
[2017-01-25] MEDS: MEROPENEM 1 G in IV NORMAL SALINE 100 ML IV SCH ×2 (03:32→10:55)
[2017-01-25 04:00] VITALS: BP 162/104
[2017-01-25] MEDS: CLINDAMYCIN PHOSPHATE IV 600 MG in IV DEXTROSE 5% 100 ML IV SCH (05:06)
[2017-01-25] MEDS: hydrALAZINE HCL 25 MG TABLET PO PRN (05:17)
[2017-01-25] MEDS: PANTOPRAZOLE SODIUM 40 MG TABLET.DR PO SCH (06:11)
[2017-01-25] MEDS: BLOOD SUGAR DIAGNOSTIC 1 EACH STRIP VI SCH ×4 (06:32→23:23)
--- NOTE | 2017-01-25 07:01 | NUR ---
PATIENT SLEPT ON AND OFF, CONT ON PAIN MANAGEMENT, NO SOB NO CHEST PAIN, CONT ABX FOR WOUND INFECTION, CONT TO MONITOR.
[2017-01-25 07:12] LABS: BASOPHILS # (AUTO) 0.4 K/uL (0.0-8.0); BASOPHILS % (AUTO) 2.9 % (0.0-2.0); EOSINOPHILS # (AUTO) 0.2 K/uL (0.0-0.7); EOSINOPHILS % (AUTO) 1.2 % (0.0-7.0); HEMATOCRIT 30.9 % (40-50); HEMOGLOBIN 10.3 G/DL (14.0-18.0); LYMPHOCYTES # (AUTO) 2.3 K/UL (0.8-4.8); LYMPHOCYTES % (AUTO) 16.2 % (20.5-51.5); MEAN CORPUSCULAR HEMOGLOBIN 29.5 UUG (27.0-31.0); MEAN CORPUSCULAR HGB CONC 33 g/dL (32.0-37.0); MEAN CORPUSCULAR VOLUME 88.7 FL (82.0-92.0); MONOCYTES # (AUTO) 0.6 K/UL (0.1-1.30); MONOCYTES % (AUTO) 4.2 % (0.0-11.0); NEUTROPHILS # (AUTO) 10.5 K/UL (1.8-8.9); NEUTROPHILS % (AUTO) 75.5 % (38.5-71.5); PLATELET COUNT (AUTO) 365 K/UL (150-450); RED BLOOD CELL COUNT(AUTO) 3.48 MIL/UL (4.7-6.1)
[2017-01-25 07:45] VITALS: BP 150/68
[2017-01-25 07:57] LABS: BILIRUBIN,TOTAL 0.2 mg/dL (0.2-1.0); CREATININE 1.2 mg/dL (0.6-1.3); MAGNESIUM 1.7 mg/dL (1.8-2.4); PHOSPHOROUS 3.6 mg/dL (2.5-4.9); POTASSIUM 3.7 mmol/L (3.5-5.1); TOTAL PROTEIN, SERUM 6.4 g/dL (6.4-8.2)
[2017-01-25] MEDS: LACTOBACILLUS RHAMNOSUS GG 1 EACH CAPSULE PO SCH ×2 (08:05→20:51)
[2017-01-25] MEDS: SILVER SULFADIAZINE 1% CREAM 50 GM TP SCH ×2 (08:05→16:59)
[2017-01-25] MEDS: SODIUM HYPOCHLORITE 0.125% 473 ML BOTTLE TP SCH (08:05)
[2017-01-25] MEDS: FERROUS SULFATE 325 MG TABEC PO SCH (08:05)
[2017-01-25] MEDS: MORPHINE SULFATE 4 MG/1 ML DISP.SYRIN IV PRN ×3 (08:07→23:32)
[2017-01-25] MEDS: ENOXAPARIN SODIUM 80 MG/0.8 ML DISP.SYRIN SQ SCH ×2 (08:09→20:55)
[2017-01-25] MEDS: INSULIN REGULAR, HUMAN 300 UNIT/3 ML VIAL SQ PRN ×3 (08:09→17:00)
--- NOTE | 2017-01-25 08:15 | NUR ---
LAB RESULT OF ALBUMIN REPORT TO DR JAVED NO NEW ORDER
--- NOTE | 2017-01-25 08:30 | NUR ---
AWAKE ALERT COOPERATE WELL NO SOB RESTING WITH CALL MALDONADO IN REACH NO PAIN
[2017-01-25 10:19] LABS: BAND % (MANUAL) 5 % (0-10); LYMPHOCYTES % (MANUAL) 20 % (20-40); MONOCYTES % (MANUAL) 3 % (2-10); NEUTROPHILS % (MANUAL) 72 % (42-75)
[2017-01-25] MEDS ORDERED: MAGNESIUM OXIDE 400 MG TABLET PO ONE (10:45)
[2017-01-25] MEDS: VANCOMYCIN IV 1 G in PREMIXED 0 EACH IV SCH ×2 (11:33→23:16)
--- NOTE | 2017-01-25 12:00 | NUR ---
DR TEGAN ECHAVARRIA SEE PATIENT AND NEW ORDER IN CHART
[2017-01-25 12:07] VITALS: BP 129/87
[2017-01-25] MEDS ORDERED: CEFAZOLIN 2 G in IV DEXTROSE 5% 100 ML IV SCH (14:00)
--- NOTE | 2017-01-25 14:00 | NUR ---
WOUND CARE DSG CHANGE DONE ORDER SATE PAIN MED HELP TO RELIEF PAIN WELL
--- NOTE | 2017-01-25 14:56 | NUR ---
Case Management: Called Erum Morales [CM from [facility]; [phone]; ] and per voicemail she will be out of the office until 01/31/17. PANCHITO's voicemail instructed to contact Sofia [phone] who will be covering until then. TERRANCE spoke with Sofia who stated that actually the Metal Fabricating Supervisor is Yuliana and reported she is the [facility] RN. Per Sofia, the PANCHITO Bridges will return call regarding authorization to transfer to a higher level of care facility. Tracking# [id number].
[2017-01-25 15:25] VITALS: BP 145/89
--- NOTE | 2017-01-25 15:53 | NUR ---
CLINICAL PHARMACY NOTE: VANCOMYCIN PHARMACY TO DOSE Subjective: To continue vancomycin in this 46 y/o male for (per ID note): -Severe sepsis with lactic acidosis due to infected back wound and R foot infection - Infected back wound/abscess s/p failed I&D in ED; s/p bedside I&D 01/23/2017; superficial wound Cx grew GBS - R foot ulcer; X-ray shows erosive changes at the second metatarsophalangeal joint concerning for septic joint vs OM; superficial wound cx grew MSSA; s/p bedside I&D 01/24/2017 and wound cx grew GBS Objective: height 177cm weight 72 kg Objective BUN 20 Scr 1.2 wbc 14 temp 98.1 Vanco trough level: 13.1 Assessment/Plan Since vanco trough level is below 15 mcg/ml, will change Vancomycin dose from 1 gram IV every 14 hrs to vanco 1gm IVPB q13h for predicted vanco trough level of 15 mcg/ml at steady state. Second dose is due at midnight. Plan to draw another trough prior to 4th dose of current regimen (not yet ordered). Will monitor for renal function. Will monitor daily.
--- NOTE | 2017-01-25 17:00 | NUR ---
CONDITION STABLE PAIN UNDER CONTROL NO RESPIRATORY DISTRESS CONTINUE WOUND CARE ORDER ON FALL PRECAUTION BED ALARM ON AND CALL MALDONADO IN REACH
--- NOTE | 2017-01-25 19:10 | NUR ---
Bedside reporting with HAI Goodwin. Sleeping during initial rounds. Not in distress. LBKA noted. Right foot with dressing, dry and intact. Safety measures and fall precaution maintained. Continue care as planned.
[2017-01-25] MEDS: DOCUSATE SODIUM 100 MG CAPSULE PO SCH (20:51)
[2017-01-25] MEDS: ATORVASTATIN 10 MG TABLET PO SCH (20:51)
--- NOTE | 2017-01-25 21:00 | NUR ---
Accu check was not done at this time as scheduled. Pt refused to be touch. No insulin was given as well. Will try again later.
[2017-01-25 21:13] VITALS: BP 138/85
[2017-01-25] MEDS: INSULIN DETEMIR 300 UNIT/3 ML CARTRIDGE SQ SCH (23:25)
[2017-01-25] MEDS: INSULIN REGULAR, HUMAN 300 UNITS/3 ML VIAL SQ PRN (23:27)
[2017-01-26] MEDS ORDERED: VANCOMYCIN IV 1 G in PREMIXED 0 EACH IV SCH ×2
[2017-01-26 04:00] VITALS: BP 148/96
--- NOTE | 2017-01-26 05:48 | NUR ---
Patient very uncooperative with his care. He tends to screamed/yelled at the staff. Refused to be bothered/awakened for care. Refused wound pictures to be done, lab draws, accu check and medication dues. Charge nurse aware. Will endorse to oncoming shift.
--- NOTE | 2017-01-26 07:07 | NUR ---
Bedside reporting with HAI Goodwin
--- NOTE | 2017-01-26 08:00 | NUR ---
RESTING WELL NO SOB STATE PAIN UNDER CONTROL ON FALL PRECAUTION CALL MALDONADO IN REACH AND BED ALARM ON
[2017-01-26] MEDS: MORPHINE SULFATE 4 MG/1 ML DISP.SYRIN IV PRN (08:47)
[2017-01-26] MEDS: PANTOPRAZOLE SODIUM 40 MG TABLET.DR PO SCH (08:50)
[2017-01-26] MEDS: LACTOBACILLUS RHAMNOSUS GG 1 EACH CAPSULE PO SCH ×2 (08:50→20:29)
[2017-01-26] MEDS: FERROUS SULFATE 325 MG TABEC PO SCH (08:50)
[2017-01-26] MEDS: BLOOD SUGAR DIAGNOSTIC 1 EACH STRIP VI SCH ×4 (08:50→20:32)
[2017-01-26] MEDS: INSULIN REGULAR, HUMAN 300 UNIT/3 ML VIAL SQ PRN ×3 (08:52→17:17)
[2017-01-26] MEDS: ENOXAPARIN SODIUM 80 MG/0.8 ML DISP.SYRIN SQ SCH ×2 (08:54→20:34)
[2017-01-26] MEDS: SILVER SULFADIAZINE 1% CREAM 50 GM TP SCH ×2 (08:57→17:19)
[2017-01-26] MEDS: SODIUM HYPOCHLORITE 0.125% 473 ML BOTTLE TP SCH (08:57)
[2017-01-26 09:00] LABS: MAGNESIUM 1.7 mg/dL (1.8-2.4); POTASSIUM 3.5 mmol/L (3.5-5.1)
[2017-01-26 09:15] LABS: BASOPHILS # (AUTO) 0.1 K/uL (0.0-8.0); BASOPHILS % (AUTO) 0.7 % (0.0-2.0); EOSINOPHILS # (AUTO) 0.2 K/uL (0.0-0.7); HEMATOCRIT 34.8 % (40-50); HEMOGLOBIN 11.8 G/DL (14.0-18.0); LYMPHOCYTES # (AUTO) 2.7 K/UL (0.8-4.8); LYMPHOCYTES % (AUTO) 16.9 % (20.5-51.5); MEAN CORPUSCULAR HEMOGLOBIN 29.7 UUG (27.0-31.0); MEAN CORPUSCULAR HGB CONC 34 g/dL (32.0-37.0); MEAN CORPUSCULAR VOLUME 87.8 FL (82.0-92.0); MONOCYTES # (AUTO) 0.7 K/UL (0.1-1.30); MONOCYTES % (AUTO) 4.2 % (0.0-11.0); NEUTROPHILS # (AUTO) 12.4 K/UL (1.8-8.9); NEUTROPHILS % (AUTO) 77.2 % (38.5-71.5); RED BLOOD CELL COUNT(AUTO) 3.97 MIL/UL (4.7-6.1); WHITE BLOOD COUNT (AUTO) 16.1 K/UL (4.0-11.2)
[2017-01-26 09:34] LABS: PLATELET COUNT (AUTO) 562 K/UL (150-450)
[2017-01-26 11:40] VITALS: BP 118/73
[2017-01-26 11:43] LABS: BAND % (MANUAL) 2 % (0-10); EOSINOPHILS % (MANUAL) 1 % (0-8); LYMPHOCYTES % (MANUAL) 25 % (20-40); MONOCYTES % (MANUAL) 2 % (2-10); NEUTROPHILS % (MANUAL) 70 % (42-75)
[2017-01-26] MEDS: VANCOMYCIN IV 1 G in PREMIXED 0 EACH IV SCH (13:22)
--- NOTE | 2017-01-26 13:30 | NUR ---
WOUND CARE DSG CHANGE AND PICTURE TAKEN TODAY STATE PAIN MED HELP TO RELIEF PAIN NO SOB RA O2 SAT WAS 94%
--- NOTE | 2017-01-26 15:07 | NUR ---
CLINICAL PHARMACY NOTE: VANCOMYCIN PHARMACY TO DOSE Subjective: To continue vancomycin in this 46 y/o male for (per ID note): -Severe sepsis with lactic acidosis due to infected back wound and R foot infection - Infected back wound/abscess s/p failed I&D in ED; s/p bedside I&D 01/23/2017; superficial wound Cx grew GBS - R foot ulcer; X-ray shows erosive changes at the second metatarsophalangeal joint concerning for septic joint vs OM; superficial wound cx grew MSSA; s/p bedside I&D 01/24/2017 and wound cx grew GBS Objective: height 177cm weight 72 kg Objective BUN 15 Scr 1.2 wbc 14 temp 98.3 Assessment/Plan Will continue vanco 1gm IVPB q13h for predicted vanco trough level of 15 mcg/ml at steady state. third dose due today at 1300. Plan to draw another trough prior to 4th dose of current regimen (due for tomorrow early am at 0130). RN endorsed to hold if trough >20. Will check level in am and readjust as needed. Will monitor daily.
[2017-01-26] MEDS: hydrALAZINE HCL 25 MG TABLET PO PRN (15:11)
[2017-01-26 15:45] VITALS: BP 163/90
[2017-01-26 16:30] VITALS: BP 141/95
--- NOTE | 2017-01-26 17:30 | NUR ---
RESTING WELL PAIN UNDER CONTROL SAFETY MEASURE PROVIDED CALL LIGHT WITHIN REACH
--- NOTE | 2017-01-26 19:10 | NUR ---
Bedside reporting with HAI Goodwin. Awake, requesting snack at this time. Denies pain/discomfort at this time. Cooperative and pleasant. Continue care as planned.
[2017-01-26 20:08] VITALS: BP 132/87
[2017-01-26] MEDS: ATORVASTATIN 10 MG TABLET PO SCH (20:29)
[2017-01-26] MEDS: DOCUSATE SODIUM 100 MG CAPSULE PO SCH (20:30)
[2017-01-26] MEDS: INSULIN DETEMIR 300 UNIT/3 ML CARTRIDGE SQ SCH (20:33)
[2017-01-26] MEDS: INSULIN REGULAR, HUMAN 300 UNITS/3 ML VIAL SQ PRN (20:35)
--- NOTE | 2017-01-26 21:45 | NUR ---
Patient upset thinking that I spilled his urinal on his bedside table after emptying it to the bathroom. MARTIN Rodas and myself trying to explain but he started screaming at the top of his voice and saying "I will discharge you both as my nurse , you get out of my room"
[2017-01-27] MEDS: VANCOMYCIN IV 1 G in PREMIXED 0 EACH IV SCH ×2 (02:15→13:53)
[2017-01-27 05:00] VITALS: BP 128/80
--- NOTE | 2017-01-27 05:08 | NUR ---
Medicated once for pain after giving the insulin and lovenox SQ. Uncooperative with his care. Non compliant to treatment. Very irrational, rude, unreasonable, irritable, needy, and duarte. All needs attended. Continue on ATB IVPB as ordered without s/s of adverse reaction noted. No significant event reported all night.Continue care as planned.
--- NOTE | 2017-01-27 06:56 | NUR ---
Bedside reporting with HAI Thompson
--- NOTE | 2017-01-27 07:10 | NUR ---
Received report from mini shifter nurse. Patient in wheelchair returning from having a cigarette. transferred to bed on own.
[2017-01-27] MEDS: BLOOD SUGAR DIAGNOSTIC 1 EACH STRIP VI SCH ×4 (07:31→20:13)
[2017-01-27] MEDS: PANTOPRAZOLE SODIUM 40 MG TABLET.DR PO SCH (07:40)
[2017-01-27] MEDS: INSULIN REGULAR, HUMAN 300 UNIT/3 ML VIAL SQ PRN ×3 (07:41→16:52)
[2017-01-27] MEDS: MORPHINE SULFATE 4 MG/1 ML DISP.SYRIN IV PRN ×3 (07:43→20:07)
[2017-01-27] MEDS: FERROUS SULFATE 325 MG TABEC PO SCH (08:10)
[2017-01-27] MEDS: LACTOBACILLUS RHAMNOSUS GG 1 EACH CAPSULE PO SCH ×2 (08:10→20:13)
[2017-01-27] MEDS: SILVER SULFADIAZINE 1% CREAM 50 GM TP SCH ×2 (08:12→16:43)
[2017-01-27] MEDS: ENOXAPARIN SODIUM 80 MG/0.8 ML DISP.SYRIN SQ SCH ×2 (08:12→20:18)
[2017-01-27] MEDS: SODIUM HYPOCHLORITE 0.125% 473 ML BOTTLE TP SCH (08:12)
[2017-01-27 08:26] LABS: BASOPHILS # (AUTO) 0.1 K/uL (0.0-8.0); BASOPHILS % (AUTO) 0.7 % (0.0-2.0); EOSINOPHILS # (AUTO) 0.2 K/uL (0.0-0.7); EOSINOPHILS % (AUTO) 1.7 % (0.0-7.0); HEMOGLOBIN 11.5 G/DL (14.0-18.0); LYMPHOCYTES # (AUTO) 2.6 K/UL (0.8-4.8); LYMPHOCYTES % (AUTO) 20.2 % (20.5-51.5); MEAN CORPUSCULAR HEMOGLOBIN 29.1 UUG (27.0-31.0); MEAN CORPUSCULAR HGB CONC 33 g/dL (32.0-37.0); MEAN CORPUSCULAR VOLUME 88.2 FL (82.0-92.0); MONOCYTES # (AUTO) 0.5 K/UL (0.1-1.30); MONOCYTES % (AUTO) 3.7 % (0.0-11.0); NEUTROPHILS # (AUTO) 9.5 K/UL (1.8-8.9); NEUTROPHILS % (AUTO) 73.7 % (38.5-71.5); PLATELET COUNT (AUTO) 611 K/UL (150-450); RED BLOOD CELL COUNT(AUTO) 3.96 MIL/UL (4.7-6.1); WHITE BLOOD COUNT (AUTO) 12.9 K/UL (4.0-11.2)
[2017-01-27 08:39] LABS: POTASSIUM 3.8 mmol/L (3.5-5.1)
[2017-01-27 09:14] LABS: BAND % (MANUAL) 2 % (0-10); EOSINOPHILS % (MANUAL) 2 % (0-8); LYMPHOCYTES % (MANUAL) 25 % (20-40); MONOCYTES % (MANUAL) 3 % (2-10); NEUTROPHILS % (MANUAL) 68 % (42-75)
[2017-01-27 11:19] VITALS: BP 138/92
--- NOTE | 2017-01-27 12:00 | NUR ---
Wound care performed as ordered on back and foot, patient tolerated well.
--- NOTE | 2017-01-27 15:06 | NUR ---
CLINICAL PHARMACY NOTE: VANCOMYCIN PHARMACY TO DOSE Subjective: To continue vancomycin in this 46 y/o male for (per ID note): -Severe sepsis with lactic acidosis due to infected back wound and R foot infection - Infected back wound/abscess s/p failed I&D in ED; s/p bedside I&D 01/23/2017; superficial wound Cx grew GBS - R foot ulcer; X-ray shows erosive changes at the second metatarsophalangeal joint concerning for septic joint vs OM; superficial wound cx grew MSSA; s/p bedside I&D 01/24/2017 and wound cx grew GBS Objective: height 177cm weight 72 kg Objective BUN 18 Scr 1.0 wbc 14 temp 98 Vancomycin trough 14.5 today at 0150 Assessment/Plan Since Vancomycin trough is under therapeutic range(extrapolated level is 14.9) and scr is improving, will increase dose to 1 gram IV every 12hrs(2nd dose today at 1400) and draw trough by 4th dose(not ordered yet) for expected trough around 16.8. Will monitor daily.
--- NOTE | 2017-01-27 15:12 | NUR ---
PATIENT LEFT THE BUILDING WITHOUT NOTIFYING ME, AND TOOK HIMSELF BY WHEELCHAIR TO [facility] REPORTED BY PATIENT. VIDEO SURVEILANCE MONITORED, AND DURING MONITORING, PATIENT RETURNED AT 1630.
[2017-01-27 17:00] VITALS: BP 132/85
--- NOTE | 2017-01-27 18:10 | NUR ---
PATIENT IS IN BED, NO EVIDENCE OF DISTRESS NOTED. SIDE RAILS UP X2, BED IN LOW POSITION. NO SOB, NO PAIN REPORTED, DRESSINGS INTACT.
[2017-01-27 20:00] VITALS: BP 122/71
[2017-01-27] MEDS: DOCUSATE SODIUM 100 MG CAPSULE PO SCH (20:13)
[2017-01-27] MEDS: ATORVASTATIN 10 MG TABLET PO SCH (20:13)
[2017-01-27] MEDS: INSULIN DETEMIR 300 UNIT/3 ML CARTRIDGE SQ SCH (20:19)
[2017-01-27] MEDS: INSULIN REGULAR, HUMAN 300 UNITS/3 ML VIAL SQ PRN (20:20)
[2017-01-28] MEDS: VANCOMYCIN IV 1 G in PREMIXED 0 EACH IV SCH (01:28)
[2017-01-28] MEDS: PANTOPRAZOLE SODIUM 40 MG TABLET.DR PO SCH (06:12)
[2017-01-28] MEDS: BLOOD SUGAR DIAGNOSTIC 1 EACH STRIP VI SCH ×2 (06:39→12:14)
--- NOTE | 2017-01-28 06:46 | NUR ---
PATIENT SLEPT WELL, IN NO ACUTE DISTRESS, PT REMAINS AFEBRILE. ACCUCHECKS ORDERED. ANTIBIOTICS IV ORDERED, NO S/S OF ADVERSE REACTION. DRESSING ON BACK CLEAN/DRY/INTACT, NO S/S OF BLEEDING. SAFETY MEASURES IN PLACE, CALL LIGHT WITHIN REACH, BED ALARM ON. WILL CONTINUE TO MONITOR.
--- NOTE | 2017-01-28 07:15 | NUR ---
RECEIVED REPORT FROM SUPERVISOR WET END NURSE, PATIENT SITTING IN WHEEL CHAIR, UPSET THAT THERE IS NO ONE TO TAKE HIM OUT TO SMOKE. PATIENT IS THREATENING TO GO OUT ON OWN. EXPLAINED TO PATIENT THAT SOMEONE WILL BE AVAILABLE AFTER 730 TO GO OUT WITH HIM TO SMOKE.
[2017-01-28] MEDS: INSULIN REGULAR, HUMAN 300 UNIT/3 ML VIAL SQ PRN ×2 (07:48→12:15)
[2017-01-28] MEDS: FERROUS SULFATE 325 MG TABEC PO SCH (09:03)
[2017-01-28] MEDS: LACTOBACILLUS RHAMNOSUS GG 1 EACH CAPSULE PO SCH (09:03)
[2017-01-28] MEDS: ENOXAPARIN SODIUM 80 MG/0.8 ML DISP.SYRIN SQ SCH (09:06)
[2017-01-28] MEDS: SILVER SULFADIAZINE 1% CREAM 50 GM TP SCH (09:07)
[2017-01-28] MEDS: MORPHINE SULFATE 4 MG/1 ML DISP.SYRIN IV PRN (09:07)
[2017-01-28] MEDS: SODIUM HYPOCHLORITE 0.125% 473 ML BOTTLE TP SCH (09:07)
--- NOTE | 2017-01-28 11:00 | NUR ---
PERFORMED WOUND CARE ON BACK AND RIGHT FOOT.
[2017-01-28 11:26] VITALS: BP 135/100
[2017-01-28] MEDS ORDERED: Blood Sugar Diagnostic VI (13:14)
[2017-01-28] MEDS ORDERED: INSU100I19 SQ (13:14)
[2017-01-28] MEDS ORDERED: PANT40TA2 PO (13:14)
[2017-01-28] MEDS ORDERED: FERR325T28 PO (13:14)
[2017-01-28] MEDS ORDERED: Silver Sulfadiazine 1% Cream TP (13:14)
[2017-01-28] MEDS ORDERED: SODI473S8 TP (13:14)
[2017-01-28] MEDS ORDERED: ATOR10TA PO (13:14)
[2017-01-28] MEDS ORDERED: DOCU100C36 PO (13:14)
[2017-01-28 15:11] VITALS: BP 130/95
--- NOTE | 2017-01-28 15:35 | NUR ---
CLINICAL PHARMACY NOTE: VANCOMYCIN PHARMACY TO DOSE Subjective: To continue vancomycin in this 46 y/o male for (per ID note): -Severe sepsis with lactic acidosis due to infected back wound and R foot infection - Infected back wound/abscess s/p failed I&D in ED; s/p bedside I&D 01/23/2017; superficial wound Cx grew GBS - R foot ulcer; X-ray shows erosive changes at the second metatarsophalangeal joint concerning for septic joint vs OM; superficial wound cx grew MSSA; s/p bedside I&D 01/24/2017 and wound cx grew GBS Objective: height 177cm weight 72 kg Objective BUN 18(01/27) Scr 1.0 (01/27) wbc 12.9(01/27) temp 98 Vancomycin trough 16.5 today at 1410(ordered at 1330 but parveen 40 minutes later-extrapolate trough 17.4) Assessment/Plan Since Vancomycin trough is within the therapeutic range, will continue 1 gram IV every 12hrs. Will adjust the dose if renal function changes significantly. Will follow daily.
--- NOTE | 2017-01-28 16:24 | NUR ---
Transfer: Spoke with Andre from [facility] who informed this clock and watch hands dipper they have a bed for the patient. Ahsan requested an MD to . Gave Dr. Milton Barragan the traction power engineer Fleet Operations Manager's phone number. If the patient is medically cleared to be transferred the patient will be transported via [facility] [[phone]*2]. PANCHITO Bridges is aware [[phone]/ ].
--- NOTE | 2017-01-28 17:17 | NUR ---
PATIENT LEFT [facility]
== END 2017-01-28 17:20 | disposition home health service (06) | DRG 871 ==
LOC: ER 13:34 → TELE 20:46 → MED 01-22 12:22
PROVIDERS: ADMIT Internal Medicine; ATTEND Internal Medicine
PROC: 0H96X0Z Drainage of Back Skin with Drainage Device, External Approach (ICD-10-PCS; principal; 2017-01-20)
PROC: 0H9MX0Z Drainage of Right Foot Skin with Drainage Device, External Approach (ICD-10-PCS; 2017-01-22)
PROC: 05H533Z Insertion of Infusion Device into Right Subclavian Vein, Percutaneous Approach (ICD-10-PCS; 2017-01-22)
DX: R65.20 Severe sepsis without septic shock (principal); E43 Unspecified severe protein-calorie malnutrition; N17.0 Acute kidney failure with tubular necrosis; I50.33 Acute on chronic diastolic (congestive) heart failure; E87.2 Acidosis; D69.59 Other secondary thrombocytopenia; I82.411 Acute embolism and thrombosis of right femoral vein; E11.621 Type 2 diabetes mellitus with foot ulcer; E11.40 Type 2 diabetes mellitus with diabetic neuropathy, unspecified; L02.212 Cutaneous abscess of back [any part, except buttock and flank]; L02.611 Cutaneous abscess of right foot; L97.411 Non-pressure chronic ulcer of right heel and midfoot limited to breakdown of skin; E87.1 Hypo-osmolality and hyponatremia; M86.171 Other acute osteomyelitis, right ankle and foot; A41.9 Sepsis, unspecified organism; B95.1 Streptococcus, group B, as the cause of diseases classified elsewhere; E11.65 Type 2 diabetes mellitus with hyperglycemia; Z79.899 Other long term (current) drug therapy; Z99.3 Dependence on wheelchair; Z79.4 Long term (current) use of insulin; Z89.512 Acquired absence of left leg below knee; Z89.421 Acquired absence of other right toe(s); E78.5 Hyperlipidemia, unspecified; Z81.8 Family history of other mental and behavioral disorders; Z83.3 Family history of diabetes mellitus; Z68.26 Body mass index [BMI] 26.0-26.9, adult; F15.10 Other stimulant abuse, uncomplicated; E83.42 Hypomagnesemia; M47.814 Spondylosis without myelopathy or radiculopathy, thoracic region; R26.9 Unspecified abnormalities of gait and mobility; B95.61 Methicillin susceptible Staphylococcus aureus infection as the cause of diseases classified elsewhere; F41.9 Anxiety disorder, unspecified; Z88.0 Allergy status to penicillin; E11.69 Type 2 diabetes mellitus with other specified complication; Z87.81 Personal history of (healed) traumatic fracture; M21.171 Varus deformity, not elsewhere classified, right ankle; M20.61 Acquired deformities of toe(s), unspecified, right foot; D50.9 Iron deficiency anemia, unspecified; M51.24 Other intervertebral disc displacement, thoracic region; F32.9 Major depressive disorder, single episode, unspecified; F17.210 Nicotine dependence, cigarettes, uncomplicated; E87.6 Hypokalemia; M77.9 Enthesopathy, unspecified; M41.9 Scoliosis, unspecified; L97.519 Non-pressure chronic ulcer of other part of right foot with unspecified severity
CPT/HCPCS: 36415; 70030-TC; 71010; 71275; 73630; 83550; 83605; 83735; 84100; 84443; 85025; 85730; 87040; 87070; 87077; 87086; 93005; 97110; 97161; 97530; A4217; A4663; J1170; J1650; J1815; J1940; J1956; J2185; J2270; J2405; J3370; J3475; J3490; J7030; J7050; J7060; Q9967